=== PATIENT | female | born 1985 | race Caucasian/White ===

== ENCOUNTER 2017-02-01 14:19 | Emergency (ER) | payer OTHER ==
[~2017-02-01] VITALS: Ht 167.6 cm; Wt 115.0 kg
[~2017-02-01 14:19] MED LIST: IBUP-1542 PO; NITR-58 PO; PHEN-538 PO
[2017-02-01 14:21] VITALS: Ht 167.6 cm; Wt 115.0 kg
[2017-02-01] MEDS ORDERED: KETOROLAC 60 MG INJ IM STA (14:41)
[2017-02-01] MEDS ORDERED: IBUP800T25 PO (15:31)
--- NOTE | 2017-02-01 15:36 | ERD ---
ER Documentation Chief Complaint Date/Time DATE: 02/01/17 TIME: 15:33 Chief Complaint Complains of right knee pain x 2 months HPI 32-year-old female patient with no significant past medical history presents to the ED complaining of right knee pain that started intermittently 2 months ago. Patient states that she did not have any injuries or trauma. Patient reports that she feels like her knee gets locked into place. States however she does have full range of motion and she is able to walk however is limping. States that she did not take any medications. Denies any fever, chills, nausea, vomiting, loss of sensation, loss of range of motion. ROS All systems reviewed and are negative except as per history of present illness. Medications Home Meds Active Scripts Ibuprofen* (Motrin*) 800 Mg Tab, 800 MG PO Q6, #30 TAB take with food Prov:MAGDI WINN PA-C 02/01/17 Phenazopyridine Hcl* (Pyridium*) 200 Mg Tab, 200 MG PO TID Y for DYSURIA, #6 TAB Prov:CHO,KRYSTINA 01/29/15 Ibuprofen* (Motrin*) 600 Mg Tab, 600 MG PO Q6, #15 TAB Prov:CHO,KRYSTINA 15 Nitrofurantoin Monohyd Macrocr* (Macrobid*) 100 Mg Capsr, 100 MG PO BID for 14 Days, CAP Prov:CHO,KRYSTINA 01/29/15 Allergies Allergies: Coded Allergies: No Known Allergy (Unverified , 02/01/17) PMhx/Soc Medical and Surgical Hx: pt denies Medical Hx, pt denies Surgical Hx Hx Alcohol Use: Yes (OOC) Hx Substance Use: No Hx Tobacco Use: No Smoking Status: Never smoker Physical Exam Vitals Vital Signs Date Time Temp Pulse Resp B/P Pulse Ox O2 Delivery O2 Flow Rate FiO2 02/01/17 14:21 98.0 113 20 147/770 97 Physical Exam Const: [id number], well-nourished. In no acute distress. Head: Atraumatic, normocephalic Eyes: Normal Conjunctiva without injection ENT: Normal external ear, nose and mouth. Neck: Full range of motion. No meningismus. Resp: Clear to auscultation bilaterally. No wheezing, rhonchi, rales, or crackles. No accessory muscle use. No retractions. Cardio: Regular rate and rhythm, no murmurs Skin: No petechiae or rashes Back: No midline tenderness. No CVA tenderness. Ext: No cyanosis, or edema. Cap refill less than 2 seconds. Distal pulses intact bilaterally. Tenderness to palpation of the medial and lateral aspect of patient's right knee. No erythema, edema, purulent discharge noted. Neur: Awake and alert. Normal gait and coordination. Muscle strength 5/5. Sensation intact bilaterally. Psych: Normal Mood and Affect Results 24 hrs Current Medications Medications (Trade) Dose Ordered Sig/Debbie Route PRN Reason Start Time Stop Time Status Last Admin Dose Admin Ketorolac Tromethamine (Toradol) 60 mg ONCE STAT IM 02/01/17 14:41 02/01/17 14:48 DC 02/01/17 15:10 Procedures/MDM 32-year-old female patient with no significant past medical history presents the ED complaining of right knee pain. Patient is afebrile nontoxic appearing. Patient has normal vital signs. Patient was ordered a right knee x-ray for further evaluation treatment. Patient pain has improved after receiving Toradol. Patient is placed in a knee immobilizer. Crutches were given to patient to help with ambulation. Splint Assessment: Neurovascularly intact pre and post splint placement with good fit. PROCEDURE: XR Knee. CLINICAL INDICATION: Pain. TECHNIQUE: Right knee x-rays, three views. COMPARISON: None. FINDINGS: Bone density appears normal. Bony cortices are intact. Mild moderate medial compartment joint space narrowing is observed. Tiny marginal osteophytes are present. Soft tissues are unremarkable. IMPRESSION: Degenerative changes of the right knee without evidence of acute osseous abnormality. DePatient's extremity symptoms have stabilized while they have been evaluated in the department and are appropriate for outpatient follow up. No evidence of fractures, dislocations, compartment syndrome, neurologic injury, vascular injury, open joint, open fracture, tendon laceration, septic arthritis, osteomyelitis, DVT, foreign body, or other emergent conditions. Discharge medications: Ibuprofen Follow up with orthopedic physician in 1-2 days. Instructed patient to return to the ED sooner for any worsening symptoms. Patient's questions were answered. Patient understood and agreed with discharge plan. Patient discharged stable. Departure Diagnosis: Primary Impression: Knee pain Laterality: right Chronicity: unspecified Qualified Code: M25.561 - Right knee pain, unspecified chronicity Condition: Stable Patient Instructions: Knee Pain, Uncertain Cause Referrals: [facility] YOU HAVE RECEIVED A MEDICAL SCREENING EXAM AND THE RESULTS INDICATE THAT YOU DO NOT HAVE A CONDITION THAT REQUIRES URGENT TREATMENT IN THE EMERGENCY DEPARTMENT. FURTHER EVALUATION AND TREATMENT OF YOUR CONDITION CAN WAIT UNTIL YOU ARE SEEN IN YOUR DOCTORS OFFICE WITHIN THE NEXT 1-2 DAYS. IT IS YOUR RESPONSIBILITY TO MAKE AN APPOINTMENT FOR FOLOW-UP CARE. IF YOU HAVE A PRIMARY DOCTOR --you should call your primary doctor and schedule an appointment IF YOU DO NOT HAVE A PRIMARY DOCTOR YOU CAN CALL OUR PHYSICIAN REFERRAL HOTLINE AT IF YOU CAN NOT AFFORD TO SEE A PHYSICIAN YOU CAN CHOSE FROM THE FOLLOWING [facility] [address] [facility]. [facility] [address] [facility] [facility] [address] [facility] [facility] [address] [facility] [facility] [address] [facility]. [facility] [address] [facility]. [facility] YOU HAVE RECEIVED A MEDICAL SCREENING EXAM AND THE RESULTS INDICATE THAT YOU DO NOT HAVE A CONDITION THAT REQUIRES URGENT TREATMENT IN THE EMERGENCY DEPARTMENT. FURTHER EVALUATION AND TREATMENT OF YOUR CONDITION CAN WAIT UNTIL YOU ARE SEEN IN YOUR DOCTORS OFFICE WITHIN THE NEXT 1-2 DAYS. IT IS YOUR RESPONSIBILITY TO MAKE AN APPOINTMENT FOR FOLOW-UP CARE. IF YOU HAVE A PRIMARY DOCTOR --you should call your primary doctor and schedule and appointment IF YOU DO NOT HAVE A PRIMARY DOCTOR YOU CAN CALL OUR PHYSICIAN REFERRAL HOTLINE AT . IF YOU CAN NOT AFFORD TO SEE A PHYSICIAN YOU CAN CHOSE FROM THE FOLLOWING [facility]: [facility] [address] [place] [address] [facility] [address] [place] [address] [facility] [address] [place] [address] [facility] Additional Instructions: Call your primary care doctor TOMORROW for an appointment during the next 1-2 days for a referral to orthopedic physician.See the doctor sooner or return here if your condition worsens before your appointment time. MAGDI WINN PA-C Feb 01, 2017 15:36
--- NOTE | 2017-02-01 15:51 | RADRPT ---
PROCEDURE: XR Knee. CLINICAL INDICATION: Pain. TECHNIQUE: Right knee x-rays, three views. COMPARISON: None. FINDINGS: Bone density appears normal. Bony cortices are intact. Mild moderate medial compartment joint spac e narrowing is observed. Tiny marginal osteophytes are present. Soft tissues are unremarkable. IMPRESSION: Degenerative changes of the right knee without evidence of acute osseous abnormality. RPTAT: [facility] .Florida Reilly MD, MD Date Time Electronically viewed and signed by .Florida Reilly MD, on 02/01/2017 15:51 .T/
== END 2017-02-01 16:11 | disposition home or self-care (01) ==
LOC: FTE 14:19
DX: M25.561 Pain in right knee (principal)
CPT/HCPCS: 29505; 73562; J1885; Z7610; 96372

== ENCOUNTER 2017-02-14 18:31 | Emergency (ER) | payer OTHER ==
[~2017-02-14] VITALS: Ht 167.6 cm; Wt 115.0 kg
[~2017-02-14 18:31] MED LIST changes: +IBUP800T25 PO
[2017-02-14 18:44] VITALS: Ht 167.6 cm; Wt 115.0 kg
[2017-02-14] MEDS ORDERED: KETOROLAC 30 MG INJ IM STA (19:17)
[2017-02-14] MEDS ORDERED: NAPR-260 PO (19:23)
[2017-02-14] MEDS ORDERED: ACET500C5 PO (19:23)
--- NOTE | 2017-02-14 19:35 | ERD ---
ER Documentation Chief Complaint Date/Time DATE: 02/14/17 TIME: 19:32 Chief Complaint right knee pain (hx of arthritis) - denies injury HPI This a 32-year-old female who presents the emergency department today complaining of right knee pain that is been ongoing for quite some time. States that she does have an appointment with her primary care doctor on the of next month. States she was walking in high heels today which made her pain worse. Denies any new trauma. States she was told she has arthritis on her last visit. Denies any fevers or chills. ROS All systems reviewed and are negative except as per history of present illness. Medications Home Meds Active Scripts Acetaminophen* (Tylophen*) 500 Mg Capsule, 1 CAP PO Q6H Y for PAIN AND OR ELEVATED TEMP, #30 CAP Prov:MARYANA OLIVARES PA-C 02/14/17 Naproxen* (Naprosyn*) 500 Mg Tablet, 500 MG PO BID Y for PAIN AND/OR INFLAMMATION, #30 TAB Prov:MARYANA OLIVARES PA-C 02/14/17 Ibuprofen* (Motrin*) 800 Mg Tab, 800 MG PO Q6, #30 TAB take with food Prov:MAGDI WINN PA-C 02/01/17 Phenazopyridine Hcl* (Pyridium*) 200 Mg Tab, 200 MG PO TID Y for DYSURIA, #6 TAB Prov:CHO,KRYSTINA 01/29/15 Ibuprofen* (Motrin*) 600 Mg Tab, 600 MG PO Q6, #15 TAB Prov:CHO,KRYSTINA 01/29/15 Nitrofurantoin Monohyd Macrocr* (Macrobid*) 100 Mg Capsr, 100 MG PO BID for 14 Days, CAP Prov:CHO,KRYSTINA 01/29/15 Allergies Allergies: Coded Allergies: No Known Allergy (Unverified , 02/01/17) PMhx/Soc Medical and Surgical Hx: pt denies Medical Hx, pt denies Surgical Hx History of Surgery: No Anesthesia Reaction: No Hx Neurological Disorder: No Hx Respiratory Disorders: No Hx Cardiac Disorders: No Hx Psychiatric Problems: No Hx Miscellaneous Medical Probl: No Hx Alcohol Use: Yes (OOC) Hx Substance Use: No Hx Tobacco Use: No Smoking Status: Never smoker Physical Exam Vitals Vital Signs Date Time Temp Pulse Resp B/P Pulse Ox O2 Delivery O2 Flow Rate FiO2 02/14/17 18:44 99.4 113 20 185/88 96 Physical Exam Const: Obese, no acute distress Head: Atraumatic Eyes: Normal Conjunctiva ENT: Normal External Ears, Nose and Mouth. Neck: Full range of motion..~ No meningismus. Resp: Clear to auscultation bilaterally Cardio: Regular rate and rhythm, no murmurs Skin: No petechiae or rashes MSK right knee with no obvious deformity. No effusion. No ecchymosis. Full active range of motion. Pulses 2+. Distal neurovascularly intact. Neur: Awake and alert Psych: Normal Mood and Affect Results 24 hrs Current Medications Medications (Trade) Dose Ordered Sig/Debbie Route PRN Reason Start Time Stop Time Status Last Admin Dose Admin Ketorolac Tromethamine (Toradol) 30 mg ONCE STAT IM 02/14/17 19:17 02/14/17 19:18 DC Procedures/MDM This a 32-year-old female who presents to the emergency department today complaining of right knee pain for quite some time worse over the past day. Upon review of patient's medical records she was seen here on February 01, 2017 and had x-rays done at that time that showed mild to moderate joint space narrowing with tiny osteophytes present. Patient has had no new trauma do not feel that she requires repeat imaging at this time. She is afebrile and otherwise well- appearing. Low suspicion for septic joint or gout, acute fracture dislocation. Her symptoms at this time is consistent with acute on chronic knee pain secondary to degenerative joint disease. Patient was given Toradol here in the emergency department. I have encouraged her to do nonweightbearing exercise on a bike and swimming pool as well as to lose weight. Patient was in agreement with the plan. Patient is given a prescription for Naprosyn and Tylenol for home. At this time the patient is stable for discharge and outpatient management. Patient should follow up with their PCP in the next 1-2 days. They may return to the emergency department sooner for any persistent or worsening of symptoms. Patient understood and agreed with the plan. Departure Diagnosis: Primary Impression: Knee pain Laterality: right Chronicity: chronic Qualified Code: M25.561 - Chronic pain of right knee Condition: Fair Patient Instructions: What Is Arthritis? Referrals: [facility] Hours: Mon-Fri 9:00 AM - 5:00 PM Additional Instructions: Call your primary care doctor TOMORROW for an appointment during the next 1-2 days for referral to bi specialist.See the doctor sooner or return here if your condition worsens before your appointment time. Take Naprosyn or Tylenol or Motrin for pain Apply ice and heat intermittently to painful area Wear flat shoes for work MARYANA OLIVARES PA-C Feb 14, 2017 19:35
== END 2017-02-14 19:43 | disposition home or self-care (01) ==
LOC: FTE 18:31
DX: M25.561 Pain in right knee (principal)
CPT/HCPCS: 99283

== ENCOUNTER 2017-04-13 00:05 | Emergency (ER) | payer SELFPAY ==
[~2017-04-13] VITALS: Ht 162.6 cm; Wt 116.0 kg
[~2017-04-13 00:05] MED LIST changes: +ACET500C5 PO; +NAPR-260 PO
[2017-04-13 00:08] VITALS: Ht 162.6 cm; Wt 116.0 kg
== END 2017-04-13 03:14 | disposition left against medical advice (07) ==
LOC: E/R 00:05
DX: Z53.21 Procedure and treatment not carried out due to patient leaving prior to being seen by health care provider (principal)